=== PATIENT | female | born 1960 | race American Indian/Alaskan Native ===

== ENCOUNTER 2019-04-09 22:17 | Emergency (ER) | payer MEDICARE ==
--- NOTE | 2019-04-09 22:42 | Event Note ---
ED Screening Note Date of service: 04/09/19 Time: 22:41 ED Screening Note: 58 y o male presents with lower back pain worsenming causing pain with walking This initial assessment/diagnostic orders/clinical plan/treatment(s) is/are subject to change based on patients health status, clinical progression and re- assessment by fellow clinical providers in the ED. Further treatment and workup at subsequent clinical providers discretion. Patient/guardian urged not to elope from the ED as their condition may be serious if not clinically assessed and managed. Initial orders include: CT lumbar acc eval
[2019-04-10] MEDS ORDERED: dexAMETHasone 20 MG/5 ML VIAL IM ONE (00:31)
[2019-04-10] MEDS ORDERED: oxyCODONE /ACETAMINOPHEN 5-325MG TAB PO ONE (00:31)
[2019-04-10] MEDS ORDERED: KETOROLAC 60 MG/2 ML INJ IM ONE (00:31)
--- NOTE | 2019-04-10 00:50 | Cat Scan Report ---
CT lumbar spine wo con INDICATION: back pain/injury. TECHNIQUE: All CT scans at this location are performed using the following dose modulation technique: Automated exposure control. CONTRAST: None. COMPARISON: None available. FINDINGS: Satisfactory alignment without vertebral compression or advanced degenerative disc disease. Satisfactory alignment without vertebral compression or advanced degenerative disc disease. There is facet DJD greatest at L4-L5 on the right. There is associated ligamentous hypertrophy and resultant mild canal stenosis. Negative for bony injury or significant soft tissue abnormality. IMPRESSION: Facet DJD greatest at L4-L5 on the right where there is associated mild stenosis. Signer Name: Yves Morillo MD Signed: 04/10/2019 12:46 AM Workstation Name: [id number]
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
[2019-04-10 01:23] VITALS: BP 166/88
== END 2019-04-10 01:50 | disposition home or self-care (01) ==
LOC: ED 22:17
DX: M54.5 Low back pain (principal); G89.29 Other chronic pain; I10 Essential (primary) hypertension; Z91.013 Allergy to seafood; Z79.899 Other long term (current) drug therapy; Z90.49 Acquired absence of other specified parts of digestive tract; Z90.710 Acquired absence of both cervix and uterus
CPT/HCPCS: 72131; 96372; 99283; J1100; J1885

== ENCOUNTER 2019-07-20 19:31 | Emergency (ER) | payer OTHER, MEDICARE ==
--- NOTE | 2019-07-20 21:47 | Event Note ---
ED Screening Note Date of service: 07/20/19 Time: 21:44 ED Screening Note: c/o cough and SOB x 2 days +body aches, chills, and sweats denies fever at home denies leg pain/swelling or recent long travel hx of CKD and HTN +tachycardia This initial assessment/diagnostic orders/clinical plan/treatment(s) is/are subject to change based on patients health status, clinical progression and re- assessment by fellow clinical providers in the ED. Further treatment and workup at subsequent clinical providers discretion. Patient/guardian urged not to elope from the ED as their condition may be serious if not clinically assessed and managed. Initial orders include: CXR labs
[2019-07-20 22:09] LABS: Basophils % (Auto) 0.7 % (0.0-1.8); Eosinophils # (Auto) 0.1 K/mm3 (0.0-0.4); Eosinophils % (Auto) 1.4 % (0.0-4.3); Hematocrit 42.7 % (30.3-42.9); Hemoglobin 13.3 gm/dl (10.1-14.3); Lymphocytes # (Auto) 2.4 K/mm3 (1.2-5.4); Lymphocytes % (Auto) 47.1 % (13.4-35.0); Mean Corpuscular HGB Conc 31 % (30-34); Mean Corpuscular Volume 75 fl (79-97); Monocytes # (Auto) 0.6 K/mm3 (0.0-0.8); Monocytes % (Auto) 12.6 % (0.0-7.3); Platelet Count 342 K/mm3 (140-440); Red Blood Count 5.72 M/mm3 (3.65-5.03); Red Cell Distribution Width 16.8 % (13.2-15.2)
[2019-07-20 22:19] LABS: Calcium 10.1 mg/dL (8.4-10.2)
[2019-07-20] MEDS ORDERED: IPRATROPIUM/ALBUTEROL SULFATE 3 ML AMPUL.NEB IH ONE (22:32)
[2019-07-20] MEDS ORDERED: ACETAMINOPHEN 500 MG TAB PO ONE (22:32)
[2019-07-20] MEDS ORDERED: methylPREDNISolone Sod Succinate 125 MG/2 ML INJ IM ONE (22:32)
--- NOTE | 2019-07-20 22:38 | XRay Report ---
CHEST 2 VIEWS INDICATION / CLINICAL INFORMATION: cough, shortness of breath. COMPARISON: None available. FINDINGS: SUPPORT DEVICES: None. HEART / MEDIASTINUM: No significant abnormality. LUNGS / PLEURA: No significant pulmonary or pleural abnormality. No pneumothorax. ADDITIONAL FINDINGS: No significant additional findings. IMPRESSION: 1. No acute findings. Signer Name: Severiano Kim MD Signed: 07/20/2019 10:34 PM Workstation Name: [id number]
--- NOTE | 2019-07-20 23:38 | Emergency Department Report ---
- General Chief Complaint: Upper Respiratory Infection Stated Complaint: SHORTNESS OF BREATH, SORE THROAT, DIZZY Time Seen by Provider: 07/20/19 21:48 Source: patient Mode of arrival: Ambulatory Limitations: No Limitations - History of Present Illness Initial Comments: Patient is a 58-year-old -Faro[place] female with a history of hypertension and chronic kidney disease who presents to the ED with complaint of acute onset persistent nasal and sinus congestion, frontal sinus pressure and headache, diffuse body aches and pains, dry cough and wheezing with shortness of breath and subjective fever and chills for the last 2 days. Patient states that she has been taking [id number] medication with no relief. Patient denies dizziness, syncope, chest pain, change in vision, palpitations, hematemesis, dysuria or urinary frequency and urgency. MD Complaint: fever, cough, sore throat, rhinorrhea, nasal congestion, sinus pain -: Sudden, days(s) (2) Severity: severe Severity scale (0 -10): 7 Quality: sharp, aching Consistency: constant Improves With: nothing Worsens With: nothing Context: sick contacts Associated Symptoms: denies other symptoms, fever, chills, myalgias, headache, rhinorrhea, nasal congestion, sore throat, cough. denies: diaphoresis, chest pain, shortness of breath, abdominal pain, nausea, vomiting, diarrhea, dysuria, confusion, epistaxis Treatments Prior to Arrival: none - Related Data Previous Rx's Medication Instructions Recorded Last Taken Type methOCARBAMOL [Robaxin TAB] 500 mg PO Q6H #20 tablet 04/10/19 Unknown Rx methylPREDNISolone [Medrol 4MG 4 mg PO ONCE #1 tab.ds.pk 04/10/19 Unknown Rx DOSEPAK (21 tabs)] Albuterol INH(or & Nicu Only) 1 - 2 puff IH Q6H PRN #1 inh 07/20/19 Unknown Rx [ProAir HFA Inhaler] Amoxicillin/Potassium Clav 1 each PO Q12H #20 tablet 07/20/19 Unknown Rx [Augmentin 875-125 Tablet] Benzonatate [Tessalon Perles] 100 mg PO Q8HR #30 capsule 07/20/19 Unknown Rx methylPREDNISolone [Medrol 4MG 4 mg PO DAILY #21 tab.ds.pk 07/20/19 Unknown Rx DOSEPAK (21 tabs)] Allergies Allergy/AdvReac Type Severity Reaction Status Date / Time shellfish derived Allergy Hives Verified 04/09/19 22:31 seafood Allergy Hives Uncoded 04/09/19 22:31 ED Review of Systems ROS: Stated complaint: SHORTNESS OF BREATH, SORE THROAT, DIZZY Other details as noted in HPI Constitutional: chills, fever, malaise Eyes: denies: eye pain, eye discharge, vision change ENT: throat pain, congestion. denies: ear pain Respiratory: cough, shortness of breath, wheezing Cardiovascular: denies: chest pain, palpitations Endocrine: no symptoms reported Gastrointestinal: denies: abdominal pain, nausea, vomiting, diarrhea Genitourinary: denies: urgency, dysuria, discharge Musculoskeletal: arthralgia, myalgia. denies: joint swelling Skin: denies: rash, lesions Neurological: headache. denies: weakness, paresthesias Psychiatric: denies: anxiety, depression Hematological/Lymphatic: denies: easy bleeding, easy bruising ED Past Medical Hx - Past Medical History Previous Medical History?: Yes Hx Hypertension: Yes Hx Renal Disease: Yes (Kidney Disease) - Surgical History Past Surgical History?: Yes Additional Surgical History: Tubal Ligation, Hysterectomy, left knee surgery. - Social History Smoking Status: Never Smoker - Medications Home Medications: Home Medications Medication Instructions Recorded Confirmed Last Taken Type methOCARBAMOL [Robaxin TAB] 500 mg PO Q6H #20 tablet 04/10/19 Unknown Rx methylPREDNISolone [Medrol 4MG 4 mg PO ONCE #1 tab.ds.pk 04/10/19 Unknown Rx DOSEPAK (21 tabs)] Albuterol INH(or & Nicu Only) 1 - 2 puff IH Q6H PRN #1 inh 07/20/19 Unknown Rx [ProAir HFA Inhaler] Amoxicillin/Potassium Clav 1 each PO Q12H #20 tablet 07/20/19 Unknown Rx [Augmentin 875-125 Tablet] Benzonatate [Tessalon Perles] 100 mg PO Q8HR #30 capsule 07/20/19 Unknown Rx methylPREDNISolone [Medrol 4MG 4 mg PO DAILY #21 tab.ds.pk 07/20/19 Unknown Rx DOSEPAK (21 tabs)] ED Physical Exam - General Limitations: No Limitations General appearance: alert, in no apparent distress - Head Head exam: Present: atraumatic, normocephalic, normal inspection - Eye Eye exam: Present: normal appearance, PERRL, EOMI Pupils: Present: normal accommodation - ENT ENT exam: Present: normal orophraynx, mucous membranes moist, TM's normal bilaterally, normal external ear exam, other (Grossly congested nasal passages) - Neck Neck exam: Present: normal inspection, full ROM. Absent: tenderness, lymphadenopathy - Respiratory Respiratory exam: Present: wheezes (Mildly diffuse coarse wheezes). Absent: respiratory distress, accessory muscle use, decreased breath sounds, prolonged expiratory - Cardiovascular Cardiovascular Exam: Present: normal rhythm, tachycardia, normal heart sounds. Absent: systolic murmur, diastolic murmur, rubs, gallop - GI/Abdominal GI/Abdominal exam: Present: soft, normal bowel sounds. Absent: tenderness, guarding, hyperactive bowel sounds, hypoactive bowel sounds, organomegaly - Extremities Exam Extremities exam: Present: normal inspection, full ROM, normal capillary refill - Back Exam Back exam: Present: normal inspection, full ROM. Absent: paraspinal tenderness, vertebral tenderness - Neurological Exam Neurological exam: Present: alert, oriented X3, CN II-XII intact, normal gait, reflexes normal - Psychiatric Psychiatric exam: Present: normal affect, normal mood - Skin Skin exam: Present: warm, dry, intact, normal color. Absent: rash ED Course Vital Signs 07/20/19 07/20/19 07/20/19 19:43 21:57 22:57 Temperature 98.9 F Pulse Rate 108 H 98 H Pulse Rate [ 90 Posterior Bilateral Throughout] Respiratory 18 Rate Respiratory 16 Rate [Posterior Bilateral Throughout] Blood Pressure 131/84 O2 Sat by Pulse 92 99 Oximetry ED Medical Decision Making - Lab Data Result diagrams: 07/20/19 21:55 07/20/19 21:55 - Radiology Data Radiology results: report reviewed, image reviewed Chest x-ray shows no acute cardiopulmonary abnormalities or pneumonitis, pneumothorax or pleural effusion. - Medical Decision Making This is a 58-year-old female who presented to the ED with nasal and sinus congestion, frontal sinus pressure, persistent dry cough with wheezing intermittently for the last 2 days. In the ED, patient is alert and oriented x3 and is not in any distress. Patient was treated in the ED with Solu-Medrol and DuoNeb. Chest x-ray shows no acute cardiopulmonary abnormalities. Rapid influenza test was negative. All other lab test results were baseline and chronic and nonactionable. On reevaluation, patient's wheezing improved significantly. Patient's tachycardia also improved and resolved. Patient was discharged home on medications and advised to follow-up with her primary care physician in 7 to 10 days for reevaluation or return to the ED immediately if symptoms get worse. - Differential Diagnosis pneumonia; bronchitis; URI; Sinusitis Critical care attestation.: If time is entered above; I have spent that time in minutes in the direct care of this critically ill patient, excluding procedure time. ED Disposition Clinical Impression: Acute upper respiratory infection Acute bronchitis Qualifiers: Bronchitis organism: unspecified organism Qualified Code(s): J20.9 - Acute bronchitis, unspecified Acute frontal sinusitis Qualifiers: Recurrence: non-recurrent Qualified Code(s): J01.10 - Acute frontal sinusitis, unspecified Disposition: - TO HOME OR SELFCARE Is pt being admited?: No Does the pt Need Aspirin: No Condition: Stable Instructions: Acute Bronchitis (ED), Acute Bacterial Rhinosinusitis (ED), Upper Respiratory Infection (ED) Additional Instructions: Your symptoms are likely due to acute upper respiratory infection versus bronchitis and sinusitis. Therefore take medications with food, drink plenty of fluids and follow-up with your primary care physician in 5 to 7 days for reevaluation. Return to the ED immediately if symptoms get worse. Prescriptions: Amoxicillin/Potassium Clav [Augmentin 875-125 Tablet] 1 each PO Q12H #20 tablet methylPREDNISolone [Medrol 4MG DOSEPAK (21 tabs)] 4 mg PO DAILY #21 tab.ds.pk Albuterol INH(or & Nicu Only) [ProAir HFA Inhaler] 1 - 2 puff IH Q6H PRN #1 inh PRN Reason: Dyspnea Benzonatate [Tessalon Perles] 100 mg PO Q8HR #30 capsule Referrals: SANDRA MAYBERRY MD [Staff Physician] - 3-5 Days Forms: Work/School Release Form(ED) Time of Disposition: 23:37 Print Language: LIBYAN
[2019-07-20 23:55] VITALS: BP 139/80
== END 2019-07-20 23:50 | disposition home or self-care (01) ==
LOC: ED 19:31
DX: J20.9 Acute bronchitis, unspecified (principal); J01.10 Acute frontal sinusitis, unspecified; J06.9 Acute upper respiratory infection, unspecified; I12.9 Hypertensive chronic kidney disease with stage 1 through stage 4 chronic kidney disease, or unspecified chronic kidney disease; N18.9 Chronic kidney disease, unspecified; Z91.013 Allergy to seafood; Z90.710 Acquired absence of both cervix and uterus; Z98.890 Other specified postprocedural states; Z98.51 Tubal ligation status; Z79.899 Other long term (current) drug therapy
CPT/HCPCS: 36415; 71046; 80048; 84703; 85025; 87400; 94640; 96372; 99284; J2930; 94644

== ENCOUNTER 2020-10-25 07:58 | Outpatient (CLI) | payer SELFPAY ==
--- NOTE | 2020-10-25 10:28 | Magnetic Resonance Report ---
MR lumbar spine wo con INDICATION / CLINICAL INFORMATION: 60 years Female; LOW BACK PAIN. TECHNIQUE: Multisequence, multiplanar images of the lumbar spine were obtained. COMPARISON: None available. FINDINGS: POST-SURGICAL CHANGES: Neuro stimulator wires suspected and seen entering the dorsal aspect of the ve rtebral canal at T12-L1 ALIGNMENT: No significant abnormality. VERTEBRAE:Grossly normal marrow signal and vertebral body height for age. VISUALIZED SPINAL CORD: No significant abnormality. Conus is grossly normal in appearance. Small lip perri the filum terminalis seen-of no clinical significance. INTERVERTEBRAL DISCS: Grossly normal in height and signal intensity. [id number] ANALYSIS: L1-2: No significant abnormality. L2-3: No significant abnormality. L3-4: Minimal disc bulge. Minimal facet hypertrophy. L4-5: Mild disc bulge. Mild facet hypertrophy. Widened facet joints noted at this level. Flexion and extension views of the lumbar spine may be helpful in evaluating for segmental instability. L5-S1: Minimal disc bulge and mild facet hypertrophy. PARASPINAL SOFT TISSUES: No significant abnormality. ADDITIONAL FINDINGS: None. IMPRESSION: 1. Mild degenerative changes of the lumbar spine as described above. No single, dominant cause for pa tient's symptomatology seen. Most marked findings appear to be at L4-5. Signer Name: Stephen Orr MD, III Signed: 10/25/2020 10:24 AM Workstation Name: [id number]
== END 2020-10-25 07:59 | disposition home or self-care (01) ==
LOC: MRI 07:58
PROVIDERS: ATTEND Pain Medicine Interventional Pain Medicine
DX: M51.37 Other intervertebral disc degeneration, lumbosacral region (principal); M47.816 Spondylosis without myelopathy or radiculopathy, lumbar region
CPT/HCPCS: 72148

== ENCOUNTER 2021-02-23 16:27 | Emergency (ER) | payer MEDICARE, OTHER ==
[2021-02-23 16:36] VITALS: BP 170/89
[2021-02-23] MEDS ORDERED: ONDANSETRON 4 MG ODT TAB PO ONE (17:12)
[2021-02-23] MEDS ORDERED: dexAMETHasone 20 MG/5 ML VIAL IM ONE (17:12)
[2021-02-23] MEDS ORDERED: HYDROmorphone 1 MG/1 ML INJ IM ONE (17:12)
[2021-02-23] MEDS ORDERED: GABAPENTIN 300 MG CAP PO ONE (17:13)
--- NOTE | 2021-02-23 18:08 | Emergency Department Report ---
ED Back Pain/Injury HPI - General Chief Complaint: Back Pain/Injury Stated Complaint: BACK PAIN LEFT SIDE/ PAIN IN RT FOOT Source: patient Limitations: No Limitations - History of Present Illness Initial Comments: Patient is a nice 60-year-old -[place] female with a history of morbid obesity, hypertension, chronic migraine headaches, chronic low back pain with sciatica due to chronic degenerative lumbar disc disease and chronic recurrent plantar fasciitis who presents to the ED with acute exacerbation of her chronic low back pain that radiates to the left leg and worsening left plantar foot pain for the last 1 week. Patient states that the pain in her lower back is typical of her chronic low back pain with exacerbations and states that she has been taking prescribed narcotic pain medications, Percocet 10 mg - 325 mg as well as tizanidine with no relief. Patient states that the pain in her low back radiates to her left hip and distally to her left leg and left foot. Patient states that the pain in her left plantar foot is worse with ambulation. Patient denies fever, chills, nausea, vomiting, dizziness, syncope, chest pain or shortness of breath, traumatic injury, heavy lifting, hematuria, dysuria, numbness and tingling or weakness of lower extremities bilaterally. MD Complaint: back pain, other (Left plantar foot pain) -: Gradual, days(s) (5), month(s) (6) Similar Symptoms Previously: Yes (Chronic low back pain with sciatica) Place: home Radiation: left leg Severity: severe Severity scale (0 -10): 8 Quality: sharp, aching Consistency: constant Improves With: none Worsens With: immobilization, movement, sitting upright, walking Context: turning/twisting, unknown, other (Chronic low back pain) Associated Symptoms: denies other symptoms. denies: confusion, weakness, chest pain, numbness, difficulty walking, cough, difficulty urinating, incontinence, headaches, abdominal pain Treatments Prior to Arrival: acetaminophen - Related Data Previous Rx's Medication Instructions Recorded Last Taken Type methOCARBAMOL [Robaxin TAB] 500 mg PO Q6H #20 tablet 04/10/19 Unknown Rx methylPREDNISolone [Medrol 4MG 4 mg PO ONCE #1 tab.ds.pk 04/10/19 Unknown Rx DOSEPAK (21 tabs)] Albuterol Mdi (or & Nicu Only) 1 - 2 puff IH Q6H PRN #1 inh 07/20/19 Unknown Rx [ProAir HFA Inhaler] Amoxicillin/Potassium Clav 1 each PO Q12H #20 tablet 07/20/19 Unknown Rx [Augmentin 875-125 Tablet] Benzonatate [Tessalon Perles] 100 mg PO Q8HR #30 capsule 07/20/19 Unknown Rx methylPREDNISolone [Medrol 4MG 4 mg PO DAILY #21 tab.ds.pk 07/20/19 Unknown Rx DOSEPAK (21 tabs)] Gabapentin 300 mg PO Q12H PRN #60 capsule 02/23/21 Unknown Rx predniSONE [Deltasone] 60 mg PO QDAY #15 tab 02/23/21 Unknown Rx Allergies Allergy/AdvReac Type Severity Reaction Status Date / Time shellfish derived Allergy Hives Verified 04/09/19 22:31 seafood Allergy Hives Uncoded 04/09/19 22:31 ED Review of Systems ROS: Stated complaint: BACK PAIN LEFT SIDE/ PAIN IN RT FOOT Other details as noted in HPI Constitutional: denies: chills, fever Eyes: denies: eye pain, eye discharge, vision change ENT: denies: ear pain, throat pain Respiratory: denies: cough, shortness of breath, wheezing Cardiovascular: denies: chest pain, palpitations Endocrine: no symptoms reported Gastrointestinal: denies: abdominal pain, nausea, diarrhea Genitourinary: denies: urgency, dysuria, discharge Musculoskeletal: back pain (Palpable lumbosacral paraspinal musculoskeletal tenderness with a positive left leg raise at 35 F]), arthralgia (Palpable severe left plantar foot tenderness). denies: joint swelling Skin: denies: rash, lesions Neurological: denies: headache, weakness, paresthesias Psychiatric: denies: anxiety, depression Hematological/Lymphatic: denies: easy bleeding, easy bruising ED Past Medical Hx - Past Medical History Previous Medical History?: Yes Hx Hypertension: Yes Hx Renal Disease: Yes (Kidney Disease) Hx Headaches / Migraines: Yes - Surgical History Past Surgical History?: Yes Additional Surgical History: Tubal Ligation, Hysterectomy, left knee surgery. - Social History Smoking Status: Never Smoker - Medications Home Medications: Home Medications Medication Instructions Recorded Confirmed Last Taken Type methOCARBAMOL [Robaxin TAB] 500 mg PO Q6H #20 tablet 04/10/19 Unknown Rx methylPREDNISolone [Medrol 4MG 4 mg PO ONCE #1 tab.ds.pk 04/10/19 Unknown Rx DOSEPAK (21 tabs)] Albuterol Mdi (or & Nicu Only) 1 - 2 puff IH Q6H PRN #1 inh 07/20/19 Unknown Rx [ProAir HFA Inhaler] Amoxicillin/Potassium Clav 1 each PO Q12H #20 tablet 07/20/19 Unknown Rx [Augmentin 875-125 Tablet] Benzonatate [Tessalon Perles] 100 mg PO Q8HR #30 capsule 07/20/19 Unknown Rx methylPREDNISolone [Medrol 4MG 4 mg PO DAILY #21 tab.ds.pk 07/20/19 Unknown Rx DOSEPAK (21 tabs)] Gabapentin 300 mg PO Q12H PRN #60 capsule 02/23/21 Unknown Rx predniSONE [Deltasone] 60 mg PO QDAY #15 tab 02/23/21 Unknown Rx ED Physical Exam - General Limitations: No Limitations General appearance: alert, in no apparent distress - Head Head exam: Present: atraumatic, normocephalic, normal inspection - Eye Eye exam: Present: normal appearance, PERRL, EOMI Pupils: Present: normal accommodation - ENT ENT exam: Present: normal exam, normal orophraynx, mucous membranes moist, TM's normal bilaterally, normal external ear exam - Neck Neck exam: Present: normal inspection, full ROM - Respiratory Respiratory exam: Present: normal lung sounds bilaterally. Absent: respiratory distress, wheezes, rales, rhonchi, stridor, chest wall tenderness, accessory m uscle use, decreased breath sounds, prolonged expiratory, other - Cardiovascular Cardiovascular Exam: Present: normal rhythm, tachycardia, normal heart sounds. Absent: systolic murmur, diastolic murmur, rubs, gallop - GI/Abdominal GI/Abdominal exam: Present: soft, normal bowel sounds. Absent: tenderness, guarding, rebound, hyperactive bowel sounds, hypoactive bowel sounds - Extremities Exam Extremities exam: Present: normal inspection, full ROM, tenderness (Palpable severe reproducible left plantar foot tenderness), normal capillary refill - Back Exam Back exam: Present: normal inspection, full ROM, tenderness (Palpable lumbosacral paraspinal musculoskeletal tenderness with a positive left leg raise test at 35 degrees), muscle spasm, paraspinal tenderness. Absent: CVA tenderness (R), CVA tenderness (L), vertebral tenderness - Neurological Exam Neurological exam: Present: alert, oriented X3, CN II-XII intact, normal gait, reflexes normal - Psychiatric Psychiatric exam: Present: normal affect, normal mood - Skin Skin exam: Present: warm, dry, intact, normal color. Absent: rash ED Course Vital Signs 02/23/21 16:31 Temperature 98.3 F Pulse Rate 103 H Respiratory 16 Rate Blood Pressure 170/89 [Left] O2 Sat by Pulse 100 Oximetry ED Medical Decision Making - Medical Decision Making This is a nice 60-year-old -[place] female with a history of morbid obesity, hypertension, chronic migraine headaches, chronic low back pain with sciatica due to chronic degenerative lumbar disc disease and chronic recurrent plantar fasciitis who presents to the ED with acute exacerbation of her chronic low back pain that radiates to the left leg and worsening left plantar foot pain for the last 1 week. Patient states that the pain in her lower back is typical of her chronic low back pain with exacerbations and states that she has been taking prescribed narcotic pain medications, Percocet 10 mg - 325 mg as well as tizanidine with no relief. Patient states that the pain in her low back radiates to her left hip and distally to her left leg and left foot. In the ED, patient is alert and oriented x3 and is not in any distress. Patient was treated for pain in the ED. Patient's pain is typical of her chronic low back pain and plantar fasciitis. On reevaluation, patient's pain is well controlled medication. Patient will discharge home on prescription of prednisone and advised to follow-up with her primary care physician in 5 to 7 days for reevaluation or return to the ED immediately if symptoms get worse. - Differential Diagnosis Muscle spasm; Muscle strain; plantar fasciitis; sciatica; chronic pain Critical care attestation.: If time is entered above; I have spent that time in minutes in the direct care of this critically ill patient, excluding procedure time. ED Disposition Clinical Impression: Plantar fasciitis of right foot, Spasm of muscle of lower back Chronic low back pain with left-sided sciatica Qualifiers: Back pain laterality: bilateral Qualified Code(s): M54.42 - Lumbago with sciatica, left side; G89.29 - Other chronic pain Disposition: 01 HOME / SELF CARE / HOMELESS Is pt being admited?: No Does the pt Need Aspirin: No Condition: Stable Instructions: Muscle Cramps and Spasms, [id number], Plantar Fasciitis Rehab- SportsMed, Chronic Back Pain, [id number], Sciatica, [id number] Additional Instructions: Take medication with food, drink plenty of fluids and follow-up with your primary care physician in 7 to 10 days for reevaluation. Return to the ED immediately if symptoms get worse. Prescriptions: predniSONE [Deltasone] 60 mg PO QDAY #15 tab Gabapentin 300 mg PO Q12H PRN #60 capsule PRN Reason: Pain , Severe (7-10) Referrals: [facility] [Provider Group] - 3-5 Days Time of Disposition: 18:25 Print Language: KHMER
== END 2021-02-23 19:36 | disposition home or self-care (01) ==
LOC: ED 16:27
DX: M72.2 Plantar fascial fibromatosis (principal); M62.830 Muscle spasm of back; G89.29 Other chronic pain; M54.32 Sciatica, left side; I12.9 Hypertensive chronic kidney disease with stage 1 through stage 4 chronic kidney disease, or unspecified chronic kidney disease; N18.9 Chronic kidney disease, unspecified; G43.909 Migraine, unspecified, not intractable, without status migrainosus; Z90.710 Acquired absence of both cervix and uterus; Z91.013 Allergy to seafood
CPT/HCPCS: 96372; 99282; J1100; J1170; Q0162